=== PATIENT | female | born 1990 | race Caucasian/White ===

== ENCOUNTER 2019-02-12 12:28 | Emergency (ER) | payer SELFPAY ==
[~2019-02-12] VITALS: Ht 165.1 cm; Wt 196.9 kg
[2019-02-12] MEDS ORDERED: LISINOPRIL20 MG PO (14:59)
[2019-02-12] MEDS ORDERED: NORVASC5 MG PO (14:59)
[2019-02-12] MEDS ORDERED: MUPIROCIN22 GM TOP (16:06)
[2019-02-12] MEDS ORDERED: DOXYCYCLINE HY100 MG PO (16:06)
== END 2019-02-12 12:58 | disposition home or self-care (01) ==
LOC: ED 12:28
DX: L08.9 Local infection of the skin and subcutaneous tissue, unspecified (principal)

== ENCOUNTER 2019-02-12 13:27 | Emergency (ER) | payer OTHER ==
[~2019-02-12] VITALS: Ht 165.1 cm; Wt 197.3 kg
--- OUTSIDE RECORDS SUMMARY | 2019-02-12 13:30 | XMS ---
PreManage Notification: ANDREY MARTINEZ Security Equipment Service Technician Events No recent Security Events currently on file CRITERIA MET - [facility] - 2 Visits in 30 Days CARE PROVIDERS There are no care providers on record at this time. Luis has no Care Guidelines for this patient. Tigist VISIT COUNT (12 MO.) 2 [facility] [place] TOTAL 2 NOTE: Visits indicate total known visits. ED/C VISIT TRACKING (12 MO.) 02/12/2019 13:28 [facility] TYPE: Emergency COMPLAINT: - SKIN PROBLEM/LEGS 02/12/2019 12:28 [facility] [place] TYPE: Emergency COMPLAINT: - SKIN PROBLEM/LEGS- MSE TO CLINIC INPATIENT VISIT TRACKING (12 MO.) No inpatient visits to display in this time frame [id number]
[2019-02-12] MEDS ORDERED: NORVASC5 MG PO (14:59)
[2019-02-12] MEDS ORDERED: LISINOPRIL20 MG PO (14:59)
[2019-02-12] MEDS ORDERED: DOXYCYCLINE HY100 MG PO (16:06)
[2019-02-12] MEDS ORDERED: MUPIROCIN22 GM TOP (16:06)
== END 2019-02-12 16:18 | disposition home or self-care (01) ==
LOC: ED 13:27
DX: A49.02 Methicillin resistant Staphylococcus aureus infection, unspecified site (principal); L73.9 Follicular disorder, unspecified; E11.9 Type 2 diabetes mellitus without complications; J45.909 Unspecified asthma, uncomplicated; Z88.0 Allergy status to penicillin; Z88.8 Allergy status to other drugs, medicaments and biological substances; Z79.899 Other long term (current) drug therapy
CPT/HCPCS: 99283

== ENCOUNTER 2019-05-31 16:58 | Emergency (ER) | payer OTHER ==
[~2019-05-31] VITALS: Ht 165.1 cm; Wt 196.9 kg
[~2019-05-31 16:58] MED LIST: DOXYCYCLINE HY100 MG PO; LISINOPRIL20 MG PO; MUPIROCIN22 GM TOP; NORVASC5 MG PO
--- OUTSIDE RECORDS SUMMARY | 2019-05-31 17:02 | XMS ---
PreManage Notification: ANDREY MARTINEZ Security Electrical Sign Wirer Events No recent Security Events currently on file CRITERIA MET - Group Notification CARE PROVIDERS There are no care providers on record at this time. Luis has no Care Guidelines for this patient. Care History Medical/Surgical 02/13/2019 [facility] - NO PCP LETTER SENT TO PATIENT. EJameson VISIT COUNT (12 MO.) [address] Gaby Contreras 3 [facility] TOTAL 4 NOTE: Visits indicate total known visits. ED/C VISIT TRACKING (12 MO.) 05/31/2019 16:59 [facility] [place] [place] TYPE: Emergency COMPLAINT: - COUGH, HEADACHE 03/07/2019 19:38 [facility] Gaby BALDERAS TYPE: Emergency DIAGNOSES: - Wound - Non-prs chronic ulc unsp prt of r low leg w unsp severity - Poss MRSA;leg wound - Poss MRSA 02/12/2019 13:28 [facility] TYPE: Emergency COMPLAINT: - SKIN PROBLEM/LEGS DIAGNOSES: - Other chcf (current) drug therapy - Follicular disorder, unspecified - Allergy status to oth drug/meds/biol subst status - Allergy status to penicillin - Unspecified asthma, uncomplicated - 1 Type 2 diabetes mellitus without complications - Methicillin resis staph infection, unsp site Methicill 02/12/2019 12:28 [facility] TYPE: Emergency COMPLAINT: - SKIN PROBLEM/LEGS- MSE TO CLINIC DIAGNOSES: - Local infection of the skin and subcutaneous tissue, unsp INPATIENT VISIT TRACKING (12 MO.) No inpatient visits to display in this time frame [id number]
[2019-05-31] MEDS ORDERED: ZITHROMAX250 MG PO (18:14)
== END 2019-05-31 18:24 | disposition home or self-care (01) ==
LOC: ED 16:58
DX: H66.92 Otitis media, unspecified, left ear (principal); E11.9 Type 2 diabetes mellitus without complications; J45.909 Unspecified asthma, uncomplicated; Z87.891 Personal history of nicotine dependence; Z88.8 Allergy status to other drugs, medicaments and biological substances; Z88.0 Allergy status to penicillin; Z79.899 Other long term (current) drug therapy
CPT/HCPCS: 71046; 87502; 87880; 99283-25

== ENCOUNTER 2019-06-19 23:11 | Emergency (ER) | payer OTHER ==
[~2019-06-19] VITALS: Ht 165.1 cm; Wt 196.9 kg
[~2019-06-19 23:11] MED LIST changes: +ZITHROMAX250 MG PO
--- OUTSIDE RECORDS SUMMARY | 2019-06-19 23:14 | XMS ---
PreManage Notification: ANDREY MARTINEZ Security Machine Tool Electrician Events No recent Security Events currently on file CRITERIA MET - Group Notification - [facility] - 2 Visits in 30 Days CARE PROVIDERS DANA GONZALEZ Physician Airframe Technical Officer 06/02/2019-Current GLENN PHONE: [phone] Luis has no Care Guidelines for this patient. Care History Medical/Surgical 02/13/2019 [facility] - NO PCP LETTER SENT TO PATIENT. [place] VISIT COUNT (12 MO.) [address] Gaby Contreras 4 [facility]. TOTAL 5 NOTE: Visits indicate total known visits. ED/UCC VISIT TRACKING (12 MO.) 06/19/2019 23:12 [facility] TYPE: Emergency COMPLAINT: - RIGHT LEG PAIN/NON INJURY 05/31/2019 16:59 [facility] TYPE: Emergency COMPLAINT: - COUGH, HEADACHE DIAGNOSES: - Unspecified asthma, uncomplicated - Allergy status to penicillin - Other spring former machine (current) drug therapy - Cough - Personal history of nicotine dependence - Type 2 diabetes mellitus without complications - Otitis media, unspecified, left ear - Allergy status to other drugs, medicaments and biological sub 03/07/2019 19:38 [facility] Gaby BALDERAS TYPE: Emergency DIAGNOSES: - Wound - Non-pressure chronic ulcer of unspecified part of right lower - Poss MRSA;leg wound - Poss MRSA 02/12/2019 13:28 [facility] [place] TYPE: Emergency COMPLAINT: - SKIN PROBLEM/LEGS DIAGNOSES: - Other halfway (current) drug therapy - Follicular disorder, unspecified - Allergy status to other drugs, medicaments and biological sub - Allergy status to penicillin - Unspecified asthma, uncomplicated - Type 2 diabetes mellitus without complications - Methicillin resistant Staphylococcus aureus infection, unspec 02/12/2019 12:28 [facility] [place] TYPE: Emergency COMPLAINT: - SKIN PROBLEM/LEGS- MSE TO CLINIC DIAGNOSES: - Local infection of the skin and subcutaneous tissue, unspecif INPATIENT VISIT TRACKING (12 MO.) No inpatient visits to display in this time frame [id number]
[2019-06-19] MEDS ORDERED: CYCLOBENZAPRINE10 MG PO (23:30)
[2019-06-20] MEDS ORDERED: DICLOFENAC SODI75 MG PO (00:47)
== END 2019-06-20 01:02 | disposition home or self-care (01) ==
LOC: ED 23:11
DX: M25.551 Pain in right hip (principal); E11.9 Type 2 diabetes mellitus without complications; J45.909 Unspecified asthma, uncomplicated; Z87.891 Personal history of nicotine dependence; Z88.0 Allergy status to penicillin; Z79.899 Other long term (current) drug therapy
CPT/HCPCS: 73502; 84703; 93971; 99284-25

== ENCOUNTER 2020-03-03 19:40 | Emergency (ER) | payer OTHER ==
[~2020-03-03] VITALS: Ht 165.1 cm; Wt 196.9 kg
[~2020-03-03 19:40] MED LIST changes: +CYCLOBENZAPRINE10 MG PO; +DICLOFENAC SODI75 MG PO
[2020-03-03] MEDS ORDERED: CATAPRES0.2 MG PO (19:58)
[2020-03-03] MEDS ORDERED: MINIPRESS1 MG PO (19:58)
[2020-03-03] MEDS ORDERED: PRISTIQ ER25 MG PO (19:59)
[2020-03-03] MEDS ORDERED: METFORMIN HCL500 M1 PO (19:59)
== END 2020-03-03 20:27 | disposition home or self-care (01) ==
LOC: ED 19:40
DX: J20.9 Acute bronchitis, unspecified (principal); E11.9 Type 2 diabetes mellitus without complications; Z20.828 Contact with and (suspected) exposure to other viral communicable diseases; F17.200 Nicotine dependence, unspecified, uncomplicated; Z88.8 Allergy status to other drugs, medicaments and biological substances; Z88.0 Allergy status to penicillin; Z79.899 Other long term (current) drug therapy; Z79.84 Long term (current) use of oral hypoglycemic drugs
CPT/HCPCS: 99283; C9803; U0003

== ENCOUNTER 2020-06-28 13:25 | Emergency (ER) | payer OTHER ==
[~2020-06-28] VITALS: Ht 165.1 cm; Wt 225.8 kg
[~2020-06-28 13:25] MED LIST changes: +CATAPRES0.2 MG PO; +METFORMIN HCL500 M1 PO; +MINIPRESS1 MG PO; +PRISTIQ ER25 MG PO
[2020-06-28] MEDS ORDERED: FAMOTIDINE20 MG PO (14:03)
== END 2020-06-28 19:35 | disposition short-term general hospital (02) ==
LOC: ED 13:25
DX: N70.93 Salpingitis and oophoritis, unspecified (principal); E11.9 Type 2 diabetes mellitus without complications; J45.909 Unspecified asthma, uncomplicated; F17.200 Nicotine dependence, unspecified, uncomplicated; Z88.8 Allergy status to other drugs, medicaments and biological substances; Z88.0 Allergy status to penicillin; Z79.899 Other long term (current) drug therapy; Z79.84 Long term (current) use of oral hypoglycemic drugs
CPT/HCPCS: 74176; 76830; 80053; 81001; 83690; 84703; 85025; 87491; 87591; 99285-25; J0694; J1170; J2270; J2405; U0003

== ENCOUNTER 2020-12-18 10:32 | Emergency (ER) | payer OTHER ==
[~2020-12-18] VITALS: Ht 165.1 cm; Wt 232.7 kg
[~2020-12-18 10:32] MED LIST changes: +FAMOTIDINE20 MG PO
--- OUTSIDE RECORDS SUMMARY | 2020-12-18 10:36 | XMS ---
PreManage Notification: ANDREY MARTINEZ Security Hair Boiler Events No recent Security Events currently on file CRITERIA MET - [employer] CARE PROVIDERS DANA GONZALEZ Physician Mixer Lever Operator 06/02/2019-Current PHONE: [phone] Luis has no Care Guidelines for this patient. Care History Medical/Surgical 02/13/2019 [facility] - NO PCP LETTER SENT TO GERARDO. Tigist VISIT COUNT (12 MO.) 1 [facility] 3 [facility] TOTAL 4 NOTE: Visits indicate total known visits. ED/UCC VISIT TRACKING (12 MO.) 12/18/2020 10:34 [facility] [place] TYPE: Emergency COMPLAINT: - BACK PAIN/ INJ 06/28/2020 22:53 [facility] TYPE: Emergency DIAGNOSES: 91315. ovarian torsion vs abscess 06/28/2020 13:25 [facility] [place] TYPE: Emergency COMPLAINT: - ABDOMINAL PAIN DIAGNOSES: - Allergy status to other drugs, medicaments and biological substances - Allergy status to penicillin - Unspecified asthma, uncomplicated - CHCF (current) use of oral hypoglycemic drugs - Type 2 diabetes mellitus without complications - Unspecified abdominal pain - Other chcf (current) drug therapy - Salpingitis and oophoritis, unspecified - Nicotine dependence, unspecified, uncomplicated 03/03/2020 19:41 [facility] [place] TYPE: Emergency COMPLAINT: - SOB, COUGH, BODY ACHES DIAGNOSES: - Other buttermilk drier operator (current) drug therapy - Nicotine dependence, unspecified, uncomplicated - Type 2 diabetes mellitus without complications - terminologist (current) use of oral hypoglycemic drugs - Allergy status to penicillin - Contact with and (suspected) exposure to other viral communicable diseases - Allergy status to other drugs, medicaments and biological substances - Allergy status to other drugs, medicaments and biological substances - Acute bronchitis, unspecified - Cough INPATIENT VISIT TRACKING (12 MO.) 06/28/2020 22:53 [facility] TYPE: Gynecology DIAGNOSES: 59039. Pelvic and perineal pain . Torsion of ovary and ovarian pedicle, unspecified side . Pelvic and perineal pain . Body mass index [BMI] 70 or greater, adult . Sepsis, unspecified organism . Morbid (severe) obesity due to excess calories [id number]
[2020-12-18] MEDS ORDERED: ASPIRIN81 MG PO (10:53)
[2020-12-18] MEDS ORDERED: PHENTERMINE H37.5 M1 PO (10:53)
[2020-12-18] MEDS ORDERED: OMEPRAZOLE20 MG PO (10:53)
== END 2020-12-18 14:44 | disposition home or self-care (01) ==
LOC: ED 10:32
DX: S39.012A Strain of muscle, fascia and tendon of lower back, initial encounter (principal); S63.501A Unspecified sprain of right wrist, initial encounter; E11.9 Type 2 diabetes mellitus without complications; J45.909 Unspecified asthma, uncomplicated; E28.2 Polycystic ovarian syndrome; F17.200 Nicotine dependence, unspecified, uncomplicated; W23.1XXA Caught, crushed, jammed, or pinched between stationary objects, initial encounter; Y99.0 Civilian activity done for income or pay; Z79.82 Long term (current) use of aspirin; Z79.84 Long term (current) use of oral hypoglycemic drugs; Z79.899 Other long term (current) drug therapy; Z88.0 Allergy status to penicillin; Z88.8 Allergy status to other drugs, medicaments and biological substances
CPT/HCPCS: 72100; 73110; 99283-25

== ENCOUNTER 2021-07-01 14:06 | Emergency (ER) | payer OTHER ==
[~2021-07-01] VITALS: Ht 165.1 cm; Wt 232.7 kg
[~2021-07-01 14:06] MED LIST changes: +ASPIRIN81 MG PO; +OMEPRAZOLE20 MG PO; +PHENTERMINE H37.5 M1 PO
[2021-07-01] MEDS ORDERED: CEPHALEXIN500 MG PO (18:26)
[2021-07-01] MEDS ORDERED: HYDROCODON-ACE1 EA10 PO (18:27)
== END 2021-07-01 19:26 | disposition home or self-care (01) ==
LOC: ED 14:06
DX: N39.0 Urinary tract infection, site not specified (principal); E11.9 Type 2 diabetes mellitus without complications; J45.909 Unspecified asthma, uncomplicated; F17.200 Nicotine dependence, unspecified, uncomplicated; Z79.899 Other long term (current) drug therapy; Z88.0 Allergy status to penicillin; Z88.6 Allergy status to analgesic agent; Z88.8 Allergy status to other drugs, medicaments and biological substances; Z79.82 Long term (current) use of aspirin; Z79.84 Long term (current) use of oral hypoglycemic drugs
CPT/HCPCS: 36415; 74177; 76830; 80048; 81001; 84703; 85025; 87077; 87088; 96375; 96376; 99284-25; J0696; J1170; J2060; J2405; Q9967

== ENCOUNTER 2021-08-22 09:08 | Emergency (ER) | payer OTHER ==
[~2021-08-22] VITALS: Ht 165.1 cm; Wt 226.8 kg
[~2021-08-22 09:08] MED LIST changes: +CEPHALEXIN500 MG PO; +HYDROCODON-ACE1 EA10 PO
--- OUTSIDE RECORDS SUMMARY | 2021-08-22 09:10 | XMS ---
PreManage Notification: ANDREY MARTINEZ Security Communication Manager Events 2 event(s) in the past 18 months Most recent security events: Elopement at [facility] 08/03/2021 21:48 - Patient eloped before treatment completed. - Patient with suicidal and/or homicidal ideations eloped. - Patient eloped with IV in place. Details: PATIENT LWBS Elopement at [facility] 04/05/2021 20:17 - Other Details: PATIENT LWBS CRITERIA MET - [facility] - 2 Visits in 30 Days CARE PROVIDERS Christina Baez-C Nurse Practitioner: Family Current PHONE: [phone] Luis has no Care Guidelines for this patient. Care History Medical/Surgical 02/13/2019 [facility] - NO PCP LETTER SENT TO GERARDO. Tigist VISIT COUNT (12 MO.) 5 [facility] TOTAL 5 NOTE: Visits indicate total known visits. ED/UCC VISIT TRACKING (12 MO.) 08/22/2021 09:08 [facility] [place] TYPE: Emergency COMPLAINT: - VOMITING, FEVER, SOB 08/03/2021 21:48 [facility] [place] TYPE: Emergency COMPLAINT: - PELVIC AND ABD PAIN 07/01/2021 14:07 [facility] [place] TYPE: Emergency COMPLAINT: - ABDOMINAL PAIN DIAGNOSES: - Nicotine dependence, unspecified, uncomplicated - Allergy status to analgesic agent - Type 2 diabetes mellitus without complications - Urinary tract infection, site not specified - Unspecified asthma, uncomplicated - it security consultant (current) use of oral hypoglycemic drugs - Allergy status to penicillin - intermediate (current) use of aspirin - Right lower quadrant pain - Other home service consultant (current) drug therapy - Allergy status to other drugs, medicaments and biological substances 04/05/2021 20:17 [facility] [place] TYPE: Emergency COMPLAINT: - BACK PAIN, FLU SYMPTOMS 12/18/2020 10:34 [facility] [place] TYPE: Emergency COMPLAINT: - BACK PAIN/ INJ DIAGNOSES: - Civilian activity done for income or pay - Allergy status to penicillin - Type 2 diabetes mellitus without complications - intermediate (current) use of oral hypoglycemic drugs - Strain of muscle, fascia and tendon of lower back, initial encounter - Unspecified asthma, uncomplicated - Caught, crushed, jammed, or pinched between stationary objects, initial encounter - intermediate (current) use of aspirin - Unspecified sprain of right wrist, initial encounter - Polycystic ovarian syndrome - Low back pain - Other home service consultant (current) drug therapy - Allergy status to other drugs, medicaments and biological substances - Nicotine dependence, unspecified, uncomplicated INPATIENT VISIT TRACKING (12 MO.) No inpatient visits to display in this time frame [id number]
[2021-08-22] MEDS ORDERED: DICYCLOMINE HCL20 MG PO (11:12)
[2021-08-22] MEDS ORDERED: IMODIUM A-D2 M2 PO (11:12)
[2021-08-22] MEDS ORDERED: ONDANSETRON ODT4 MG PO (11:12)
[2021-08-22] MEDS ORDERED: PROTONIX40 MG PO (13:34)
== END 2021-08-22 13:55 | disposition home or self-care (01) ==
LOC: ED 09:08
DX: R11.2 Nausea with vomiting, unspecified (principal); R19.7 Diarrhea, unspecified; E11.9 Type 2 diabetes mellitus without complications; I10 Essential (primary) hypertension; J45.909 Unspecified asthma, uncomplicated; E66.01 Morbid (severe) obesity due to excess calories; F17.200 Nicotine dependence, unspecified, uncomplicated; Z98.84 Bariatric surgery status; Z88.8 Allergy status to other drugs, medicaments and biological substances; Z88.6 Allergy status to analgesic agent; Z68.45 Body mass index [BMI] 70 or greater, adult; Z20.822 Contact with and (suspected) exposure to COVID-19
CPT/HCPCS: 36415; 74177; 80053; 81001; 83690; 84703; 85025; 87502; A9270; C9803; J1200; J1790; J1885; J2405; J7030; U0003

== ENCOUNTER 2021-09-18 11:30 | Inpatient (IN) | payer OTHER ==
[~2021-09-18] VITALS: Ht 165.1 cm; Wt 219.0 kg
[~2021-09-18 11:30] MED LIST changes: +DICYCLOMINE HCL20 MG PO; +IMODIUM A-D2 M2 PO; +ONDANSETRON ODT4 MG PO; +PROTONIX40 MG PO
--- OUTSIDE RECORDS SUMMARY | 2021-09-18 11:32 | XMS ---
PreManage Notification: ANDREY MARTINEZ Security Commercial Airplane Pilot Events 2 event(s) in the past 18 months Most recent security events: Elopement at [facility] 08/03/2021 21:48 - Patient eloped before treatment completed. - Patient with suicidal and/or homicidal ideations eloped. - Patient eloped with IV in place. Details: PATIENT LWBS Elopement at [facility] 04/05/2021 20:17 - Other Details: PATIENT LWBS CRITERIA MET - [facility] - 2 Visits in 30 Days [facility] PROVID[facility] Christina BaezP-C Nurse Practitioner: Family Current PHONE: [phone] Luis has no Care Guidelines for this patient. Care History Medical/Surgical 02/13/2019 [facility] - NO PCP LETTER SENT TO GERARDO. Tigist VISIT COUNT (12 MO.) 6 [facility] TOTAL 6 NOTE: Visits indicate total known visits. ED/UCC VISIT TRACKING (12 MO.) 09/18/2021 11:31 [facility] [place] TYPE: Emergency COMPLAINT: - SOB / CHEST PAIN 08/22/2021 09:08 [facility] [place] TYPE: Emergency COMPLAINT: - VOMITING, FEVER, SOB DIAGNOSES: - Allergy status to other drugs, medicaments and biological substances - Diarrhea, unspecified - Nausea with vomiting, unspecified - Contact with and (suspected) exposure to COVID-19 - Body mass index [BMI] 70 or greater, adult - Type 2 diabetes mellitus without complications - Unspecified asthma, uncomplicated - Bariatric surgery status - Morbid (severe) obesity due to excess calories - Allergy status to analgesic agent - Essential (primary) hypertension - Nicotine dependence, unspecified, uncomplicated 08/03/2021 21:48 [facility] [place] TYPE: Emergency COMPLAINT: - PELVIC AND ABD PAIN 07/01/2021 14:07 [facility] [place] TYPE: Emergency COMPLAINT: - ABDOMINAL PAIN DIAGNOSES: - Nicotine dependence, unspecified, uncomplicated - Allergy status to analgesic agent - Type 2 diabetes mellitus without complications - Urinary tract infection, site not specified - Unspecified asthma, uncomplicated - long term care social worker (current) use of oral hypoglycemic drugs - Allergy status to penicillin - long term care social worker (current) use of aspirin - Right lower quadrant pain - Other rn long term care (current) drug therapy - Allergy status to other drugs, medicaments and biological substances 04/05/2021 20:17 [facility] [place] TYPE: Emergency COMPLAINT: - BACK PAIN, FLU SYMPTOMS 12/18/2020 10:[address] [facility] [place] TYPE: Emergency COMPLAINT: - BACK PAIN/ INJ DIAGNOSES: - Civilian activity done for income or pay - Allergy status to penicillin - Type 2 diabetes mellitus without complications - custodial (current) use of oral hypoglycemic drugs - Strain of muscle, fascia and tendon of lower back, initial encounter - Unspecified asthma, uncomplicated - Caught, crushed, jammed, or pinched between stationary objects, initial encounter - custodial (current) use of aspirin - Unspecified sprain of right wrist, initial encounter - Polycystic ovarian syndrome - Low back pain - Other rn long term care (current) drug therapy - Allergy status to other drugs, medicaments and biological substances - Nicotine dependence, unspecified, uncomplicated INPATIENT VISIT TRACKING (12 MO.) No inpatient visits to display in this time frame [email or web address]
[2021-09-18] MEDS ORDERED: CYCLOBENZAPRINE5 MG PO (11:50)
--- NOTE | 2021-09-18 17:30 | NUR ---
PT UP IN FOR MEAL - COMFORTABLE, DECLINES COUGH MEDS. INSTRUCTED ON NEED FOR SPUTUM - CUP LABELED AND PROVIDED TO BEDSIDE.
--- NOTE | 2021-09-18 17:42 | NUR ---
In room for lab draw, dinner tray cleared, pt ate approx 15%. Pt states no needs at this time.
--- NOTE | 2021-09-18 19:30 | NUR ---
REPORT RECEIVED FROM KAREN BURKS. pt RESTING IN BED WITH HOB ELEVATED. NO REQUESTS AT THIS TIME.
--- NOTE | 2021-09-18 20:29 | NUR ---
ANSWERED CALL LIGHT. PT IV R WRIST REINFORCED. UP IN CHAIR. RT AWARE TO CHECK THE CPAP OF PT'S.
--- NOTE | 2021-09-18 21:00 | NUR ---
PHONE CALL TO [facility] [phone] FOR A BARIATIC BED. STATED THAT WITHIN 24 HOURS BED WILL BE HERE. PT AWARE OF BED STATUS. LIBRARY MANAGER AWARE.
--- NOTE | 2021-09-18 22:03 | NUR ---
pt RESTING IN BED AWAKE. 3L OXYGEN BY NC IN PLACE. SPO2 WNL. SPORADIC WHEEZES AUSCULTATED. PRN COUGH MEDICATION ADMINISTERED. ASSESSMENT COMPLETE. pt DENIES PAIN. REQUESTING PRN SLEEP MEDICATION. PHONE CALL TO MD. ORDERS RECEIVED AND REPEATED BACK TO VERIFY. EMAR UPDATED.
--- NOTE | 2021-09-18 22:39 | NUR ---
pt RESTING IN BED ON SIDE, 3L OXYGEN BY NC IN PLACE. PRN SLEEP MEDICATION ADMINISTERED. ICE WATER REFILLED. CALL LIGHT IN REACH.
--- NOTE | 2021-09-19 00:19 | NUR ---
pt RESTING IN BED ON LEFT SIDE, BREATHING UNLABORED. NO DISTRESS NOTED.
--- NOTE | 2021-09-19 02:36 | NUR ---
IN ROOM FOR VS. pt SLEEPING WITH HOME CPAP. AWAKENS TO VOICE. SPO2 91-92% WITH CPAP RA. pt DENIES SOB AT REST. SBA TO RESTROOM FOR VOID AND BACK TO BED ON RA. BREATHING LABORED, SPO2 89-90%. 2L OXYGEN BY NC APPLIED FOR pt TO RECOVER, SPO2 QUICKLY INCREASES TO >92%. ASSESSMENT COMPLETE. SPORADIC EXPIRATORY WHEEZES AUSCULTATED THROUGHOUT LUNG LOBES, COARSE BILATERALLY IN BASES POSTERIORLY. pt HAS CALL LIGHT IN REACH. NO ADDITIONAL REQUESTS.
--- NOTE | 2021-09-19 03:26 | NUR ---
PT COMPLAINING OF HEADACHE AND COUGH. PRN TYLENOL GIVEN AND COUGH SUPPRESANT. PT DENIES ANY OTHER CONCERN AT THIS TIME. CALL LIGHT WITHIN REACH WILL CONTINUE TO MONITOR.
--- NOTE | 2021-09-19 06:03 | NUR ---
pt SLEEPING WITH 2L OXYGEN BY NC IN PLACE. TITRATED TO 1L OXYGEN BY NC. DENIES SOB. IV MEDICATION ADMINISTERED WNL, SL. VSS. pt DENIES TOILETING OR ADDITIONAL NEEDS. CALL LIGHT IN REACH.
--- NOTE | 2021-09-19 07:15 | NUR ---
Report received from Idalmis JONES. Pt resting in bed, awakens to RN entry. Pt states having headache, Idalmis JONES medicates with PRN tylenol, pt requests RT for neb tx, notified. Pt on 1L NC O2 at this time and tolerating well. No further needs, call light in reach.
--- NOTE | 2021-09-19 08:14 | NUR ---
Scheduled medications administered and assessment complete, pt sitting up to chair, currently on 1L NC O2 and spo2 94%, lungs clear at this time, no cough noted. Pt reports generalized anxiety/feeling "shaky", administered PRN flexeril, pt states takes at home. Discussed side effects of medications such as solumedrol and neb tx. Pt SL, A+O, VSS. Afebrile. Breakfast delivered to pt and ordered for pt S.O. Ana. No further needs at this time.
--- NOTE | 2021-09-19 11:03 | NUR ---
Pt medicated with PRN cough medications, no further needs at this time.
--- NOTE | 2021-09-19 12:06 | NUR ---
MIKE SPOKE WITH PATIENT AND SHE LIVES IN A ONE STORY HOUSE WITH ALEXISSHANNAN AND OTHER FAMILY MEMBERS. PATIENT WOULD LIKE TO GET HER ONCOLOGY SERVICES HERE AT [facility] INSTEAD OF GOING TO [place], [place] WHICH IS WHERE SHE IS CURRENTLY SCHEDULED TO START HER ONCOLOGY CARE. PATIENT HAS HER CPAP MACHINE AND NEBULIZER THROUGH [facility] IN [place] AND WOULD LIKE TO GET HOME O2 THROUGH THEM IF SHE NEEDS IT ON DISCHARGE. PATIENT ALSO WILL SOON BE OUT OF NEB SOLUTION AND IS LOOKING TO GET ANOTHER RX FOR IT. PATIENT PLANS TO DC TO HOME WITH ASSISTANCE FROM GUERAJs AND OTHER FAMILY MEMBERS.
--- NOTE | 2021-09-19 12:22 | NUR ---
SS insulin administered, 3 units, pt compliant with medications. Pharmacy in room to perform med rec.
[2021-09-19] MEDS ORDERED: BARIATRIC MV-I1 EACH PO (12:30)
[2021-09-19] MEDS ORDERED: CITRACAL + D E1 EACH PO (12:30)
--- NOTE | 2021-09-19 13:53 | NUR ---
KAREN LEONG INFORMED PT IS IN TAKING A SHOWER. WILL CHECK BACK LATER.
--- NOTE | 2021-09-19 15:23 | NUR ---
Scheduled ABX and pepcid administered, PRN robitussin given per pt request, pt remains on 1L and SPO2 97%, pt expresses hesitancy re: titrating to RA. Pt c/o anxiety to be off O2 at this time. Reviewed POC and pt condition, she is agreeable at this time. Call light in reach, visitor at bedside
--- NOTE | 2021-09-19 17:58 | NUR ---
Rounded on patient who is resting in bed, Remains on RA at this time, O2 NC in reach with 1L, pt educated regarding if feeling SOB to notify RN. She verbalizes understanding, states has no needs at this time.
--- NOTE | 2021-09-19 18:05 | NUR ---
PATIENT CALLED HAVING A COUGHING FIT AND ASKING FOR COUGH MEDICATION. TOO EARLY FOR TESSALON PEARLS SO COUGH SYRUP 10MLS GIVEN. CALL LIGHT IN REACH AND PATIENT HAS NOOTHER CARE NEEDS AT THIS TIME.
--- NOTE | 2021-09-19 19:31 | NUR ---
REPORT RECEIVED FROM KAREN LEONG. pt UP IN CHAIR ON RA. REQUESTING TO AMBULATE. PORTABLE SPO2 MONITOR PROVIDED. EDUCATION PROVIDED. SIGNIFICANT OTHER IN ROOM.
--- NOTE | 2021-09-19 20:45 | NUR ---
PT. CALLED [facility] REQUESTING ASSISTANCE WITH VISITOR BED. ASSISTANCE PROVIDED. CALL LIGHT LEFT WITHIN REACH. NO OTHER IMMEDIATE NEEDS AT THIS TIME.
--- NOTE | 2021-09-19 21:18 | NUR ---
pt AWAKE RESTING IN BED. CBG 153. SS INSULIN ADMINISTERED. pt ON RA, SPO2 94-95%. DENIES SOB. AMBULATED IN HALLWAY WITH SIGNIFICANT OTHER, SPO2 90-91% WITH AMBULATION. LUNG SOUNDS CLEAR AT THIS TIME THROUGHOUT ALL LOBES. CALL LIGHT IN REACH. NO ADDITIONAL REQUESTS.
--- NOTE | 2021-09-19 23:25 | NUR ---
CALL LIGHT ANSWERED. PRN FLEXERIL AND COUGH MEDICATION ADMINISTERED. pt UP IN CHAIR. REQUESTING MIDNIGHT BREATHING TREATMENT TONIGHT. RT ALTHEA NOTIFIED. URINE EMPTIED FROM TOILET. NO ADDITIONAL REQUESTS.
--- NOTE | 2021-09-19 23:30 | NUR ---
PT. CALLED REQUESTING PRN MEDS. PT. NURSE NOTIFIED PROMPTLY. CALL LIGHT LEFT WITHIN REACH. NO OTHER IMMEDIATE NEEDS AT THIS TIME.
--- NOTE | 2021-09-20 02:45 | NUR ---
CHECKED ON pt. RESTING IN BED ON RIGHT SIDE. BREATHING EQUAL AND UNLABORED. NO DISTRESS NOTED.
--- NOTE | 2021-09-20 06:38 | NUR ---
pt SLEEPING, AWAKENS TO VOICE. ASSESSMENT COMPLETE. NO ADVENTITIOUS LUNG SOUNDS AUSCULTATED. SPO2 94% ON RA. pt DENIES NEEDS. ICE WATER REFILLED. URINE HAT EMPTIED. CALL LIGHT IN REACH.
--- NOTE | 2021-09-20 07:15 | NUR ---
Report received from Idalmis JONES. Pt resting in bed, per NOC shift using RA or CPAP throughout night, no needs at this time. Will continue plan of care.
--- NOTE | 2021-09-20 08:50 | NUR ---
Scheduled medications administered and PRN robitussin. Assessment complete. Pt currently 90-93% on RA, states SOB with exertion. Using cornet device. IV flushes well. Pt states no needs at this time. Scant amount blood noted in urine, pt states has noted for several days. Call light in reach.
--- NOTE | 2021-09-20 09:02 | NUR ---
PATIENT UP IN ROOM. VITALS AND I&OS CHARTED. ROOM TIDIED AND LINEN CHANGED. WASHCLOTHS/TOWELS PROVIDED FOR PATIENT CARE
--- NOTE | 2021-09-20 11:04 | NUR ---
Pt medicated with scheduled mucinex. On phone at this time, states no needs. On RA. Ambulating around room independently.
--- NOTE | 2021-09-20 11:14 | NUR ---
PT SET UP FOR SHOWER. PT WAS INDEPENDENT IN THE ROOM/SHOWER. USED CALL LIGHT APPROPRIATLY AFTER FOR ASSISTANCE TO CLEAN UP SHOWER ROOM. PT SAT IN CHAIR AND BRUSHED HER HAIR. NO SIGNS OF DISTRESS OR PAIN NOTED. CALL LIGHT W/IN REACH. NO FURTHER REQUESTS.
--- NOTE | 2021-09-20 13:25 | NUR ---
Tracy JONES in room to medicate pt with PRN tylenol. No further needs
--- NOTE | 2021-09-20 14:09 | NUR ---
PATIENT HAD BARIATRIC SURGERY IN 2017. SHE MET WITH ME AN OUTPATIENT ABOUT 3 YEARS AGO. SHE SAID SHE WILL LIKELY HAVE ANOTHER BARITRIC SURGERY. 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 SHE IS ON A 75 GM CONSISTENT CARB DIET AT THIS TIME. SHE NEEDED A NEW MENU AND HAS BEEN CALLING THE KITCHEN TO REQUEST CHANGES TO HER MEALS DESIRED. NEW MENU BROUGHT UP. SHE STATES HE IS LOSING WEIGHT. SHE WAS 529 LBS AND TODAY SHE IS 482 LBS. SHE HAS NO OTHER QUESTIONS OR CONCERNS AT THIS TIME. WILL BE AVAILABLE IF NEEDED.
--- NOTE | 2021-09-20 14:13 | NUR ---
ENTERED PT'S RM-DARKENED AND FAN ON. PT ALERT, ORIENTED AND FRIENDLY. PT HAS HEADACHE, MENTIONED KAREN LEONG HAD JUST GIVEN TYLENOL. PT SHARED THAT SHE HAS SOME QUESTIONS REGARDING CHF,BLOOD CLOTS AND PNEUMONIA THAT SHE IS UNDER THE IMPRESSION THAT SHE IS BEING TREATED FOR, BUT NOT SURE WHY. SHARED THIS WITH KAREN LEONG-SHE WILL ADDRESS WITH PT. PT REQUESTED PRAYER,GAVE G.POST AND WILL FOLLOW
--- NOTE | 2021-09-20 14:51 | NUR ---
CM IN TO TALK WITH PATIENT. INFORMED pT THAT VITALIY THE MED/SURG CHARGE NURSE WAS WORKING ON GETTING A REFERRAL FROM PATIENT'S PCP GUERDA CAGLE TO [facility], SO PATIENT DOESN'T HAVE TO DRIVE TO [place] FOR APPOINTMENTS FOR ONCOLOGY. ALSO INFORMED PATIENT VITALIY WAS WORKING ON GETTING A REFILL ON pT'S NEB MEDICATION WELL. PATIENT VERBALIZED UNDERSTANDING. PATIENT CONCERNED ABOUT WHEN SHE WILL BE DC'D. PATIENT HAS AN OPEN MRI APPOINTMENT IN [place] 8AM 09/22/21. PATIENT JUST WANTING TO CLARIFY THAT SHE WILL BE DISCHARGED IN TIME TO GET TO THE MRI APPOINTMENT. SHE IS HOPING TO SPEND THE NIGHT IN [place] TOMORROW TO BE THERE FOR THE AM APPOINTMENT THE NEXT DAY. CM DISCUSSED THIS WITH VITALIY THE CHARGE NURSE AND SHE WILL ADDRESS THESE CONCERNS WITH AND THE PATIENT. EDITH INFORMED THE MD DOES NEED TO MAKE SURE SHE IS MEDICALLY STABLE AND SAFE FOR DC AND THIS WOULD BE ADDRESSED IN THE MORNING. PATIENT VERBALIZED UNDERSTANDING.
--- NOTE | 2021-09-20 16:45 | NUR ---
pt amb to bathroom room air - up in . prn cough syrup given.
--- NOTE | 2021-09-20 19:29 | NUR ---
REPORT RECEIVED FROM KAREN BURKS. pt UP IN CHAIR. COMPLAINS OF HEADACHE, PAIN AT IV SITE. COBAN REMOVED FROM RIGHT WRIST, pt STATES RELIEF. IV FLUSHED WNL, SL. PHONE CALL TO , ORDER RECEIVED TO INCREASE DOSE OF PRN TYLENOL, REPEATED BACK TO VERIFY. ORDER UPDATED.
--- NOTE | 2021-09-20 20:19 | NUR ---
pt AWAKE RESTING IN CHAIR. RATES PAIN 6/10 HEADACHE. PRN PAIN MEDICATION ADMINISTERED. IV SITE IN RIGHT WRIST PULLED OUT BY pt ACCIDENTALLY TAPE LOOSENED. NEW IV STARTED LEFT HAND WNL, BRISK BLOOD RETURN. SCHEDULED MEDICATIONS ADMINISTERED. ASSESSMENT COMPLETE. COARSENESS AUSCULTATED IN LOWER LUNG LOBES BILATERALLY. RUB LUQ. pt DENIES SOB. VSS. SPO2 94% ON RA. ICE WATER REFILLED. URINE HAT EMPTIED. NO ADDITIONAL REQUESTS.
--- NOTE | 2021-09-20 21:19 | NUR ---
pt'S SIGNIFICANT OTHER TO NURSES STATION. STATES AFTER AMBULATION pt'S SPO2 88%. IN pt ROOM. pt STANDING IN ROOM TALKING ON PHONE, SPO2 SPOT CHECKED, 90% ON RA. pt SITS, SPO2 INCREASES TO 94%. NO RESPIRATORY DISTRESS NOTED. PRN COUGH AND SLEEP MEDICATION ADMINISTERED REQUESTED. CALL LIGHT IN REACH.
--- NOTE | 2021-09-20 23:50 | NUR ---
pt RESTING IN BED ON RIGHT SIDE. BREATHING EQUAL AND UNLABORED. NO DISTRESS NOTED.
--- NOTE | 2021-09-21 02:41 | NUR ---
CHECKED ON pt. pt LYING IN BED ON RIGHT SIDE. BREATHING UNLABORED. NO DISTRESS NOTED. ON RA.
--- NOTE | 2021-09-21 04:37 | NUR ---
CALL LIGHT ANSWERED. PRN COUGH MEDICATION ADMINISTERED REQUESTED. pt WITH DRY COUGH. UP TO RESTROOM INDEPENDENTLY FOR VOID AND BACK TO BED. ASSESSMENT COMPLETE. VSS. LUNG SOUNDS CLEAR THROUGHOUT, DIMINISHED IN BASES, NO ADVENTITIOUS SOUNDS AUSCULTATED. HOME CPAP APPLIED. WATER IN REACH. CALL LIGHT AND PERSONAL SUPPLIES IN REACH.
--- NOTE | 2021-09-21 06:54 | NUR ---
pt SLEEPING, REMOVED HOME CPAP. "MY FACE ALWAYS GETS HOT". SCHEDULED MEDICATIONS ADMINISTERED. ICE WATER REFILLED. NO ADDITIONAL REQUESTS. CALL LIGHT IN REACH.
--- NOTE | 2021-09-21 07:10 | NUR ---
report from Idalmis JONES - pt resting, call light in reach.
--- NOTE | 2021-09-21 09:23 | NUR ---
VITALS AND I&OS CHARTED. PATIENT UP IN ROOM. CALL LIGHT IN EASY REACH
--- NOTE | 2021-09-21 09:30 | NUR ---
Discussed in [address] Garica. She will dc pt as soon as possible as she plans on driving to [place] today for an open MRI which will accomondate her weight. Charge and RN are working on a referral to oncology clinic at [facility] so pt doesn't have to drive >200 miles for oncology visits.
--- NOTE | 2021-09-21 10:37 | NUR ---
PT ALERT, ORIENTED AND LEANING ON BED. PT HOPES TO DC TODAY, GAVE ENCOURAGEMENT ANF BLESSING
[2021-09-21] MEDS ORDERED: AVIDOXY100 MG PO (10:57)
== END 2021-09-21 11:38 | disposition home or self-care (01) | DRG 193 ==
LOC: ED 11:30 → MS 15:52
PROVIDERS: ADMIT Internal Medicine; ATTEND Internal Medicine
DX: J18.9 Pneumonia, unspecified organism (principal); J96.01 Acute respiratory failure with hypoxia; J45.41 Moderate persistent asthma with (acute) exacerbation; Z68.45 Body mass index [BMI] 70 or greater, adult; Z20.822 Contact with and (suspected) exposure to COVID-19; I10 Essential (primary) hypertension; F12.90 Cannabis use, unspecified, uncomplicated; E66.01 Morbid (severe) obesity due to excess calories; M54.50 Low back pain, unspecified; G47.33 Obstructive sleep apnea (adult) (pediatric); D49.59 Neoplasm of unspecified behavior of other genitourinary organ; G89.29 Other chronic pain; K21.9 Gastro-esophageal reflux disease without esophagitis; E11.9 Type 2 diabetes mellitus without complications; Z88.6 Allergy status to analgesic agent; Z88.8 Allergy status to other drugs, medicaments and biological substances; Z79.899 Other long term (current) drug therapy; Z79.82 Long term (current) use of aspirin; Z79.84 Long term (current) use of oral hypoglycemic drugs
CPT/HCPCS: 36415; 71045; 71260; 80053; 82803; 83036; 85025; 85379; 87502; 94640; 94667; 94668; 94760; A9270; C9803; J0456; J0696; J1650; J1815; J2920; J2930; J7040; J7060; Q9967; U0003

== ENCOUNTER 2021-11-06 09:04 | Emergency (ER) | payer OTHER ==
[~2021-11-06] VITALS: Ht 165.1 cm; Wt 218.6 kg
[~2021-11-06 09:04] MED LIST changes: +AVIDOXY100 MG PO; +BARIATRIC MV-I1 EACH PO; +CITRACAL + D E1 EACH PO; +CYCLOBENZAPRINE5 MG PO
--- OUTSIDE RECORDS SUMMARY | 2021-11-06 09:06 | XMS ---
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 - Patient with suicidal and/or homicidal ideations eloped. - Patient eloped with IV in place. Details: PATIENT LWBS Elopement at [facility] 04/05/2021 20:17 - Other Details: PATIENT LWBS CRITERIA MET - [facility] CARE PROVIDERS Christina Baez Nurse Practitioner: Family Current PHONE: [phone] Luis has no Care Guidelines for this patient. Care History Medical/Surgical 02/13/2019 [facility] - NO PCP LETTER SENT TO PATIENT. [place] VISIT COUNT (12 MO.) 7 [facility] TOTAL 7 NOTE: Visits indicate total known visits. ED/UCC VISIT TRACKING (12 MO.) 11/06/2021 09:04 [facility] TYPE: Emergency COMPLAINT: - UTI SYMPTOMS 09/18/2021 11:31 [facility] TYPE: Emergency [...] not specified - Unspecified asthma, uncomplicated - measurement department chief clerk (current) use of oral hypoglycemic drugs - Allergy status to penicillin - measurement department chief clerk (current) use of aspirin - Right lower quadrant pain - Other welder gas tungsten arc (current) drug therapy - Allergy status to other drugs, medicaments and biological substances 04/05/2021 20:17 [facility] TYPE: Emergency COMPLAINT: - BACK PAIN, FLU SYMPTOMS 12/18/2020 10:34 [facility] TYPE: Emergency COMPLAINT: - BACK PAIN/ INJ DIAGNOSES: - Civilian activity done for income or pay - Allergy status to penicillin - Type 2 diabetes mellitus without complications - senior living (current) use of oral hypoglycemic drugs - Strain of muscle, fascia and tendon of lower back, initial encounter - Unspecified asthma, uncomplicated - Caught, crushed, jammed, or pinched between stationary objects, initial encounter - measurement department chief clerk (current) use of aspirin - Unspecified sprain of right wrist, initial encounter - Polycystic ovarian syndrome - Low back pain - Other correction (current) drug therapy - Allergy status to other drugs, medicaments and biological substances - Nicotine dependence, unspecified, uncomplicated INPATIENT VISIT TRACKING (12 MO.) 09/18/2021 15:52 [facility] TYPE: Medical Surgical COMPLAINT: - ACUTE RESPIRATORY FAILURE WITH HYPOXIA DIAGNOSES: - Obstructive sleep apnea (adult) (pediatric) - Other chronic pain - measurement department chief clerk (current) use of aspirin - Obstructive sleep apnea (adult) (pediatric) - Low back pain, unspecified - measurement department chief clerk (current) use of oral hypoglycemic drugs - Cannabis use, unspecified, uncomplicated - Cannabis use, unspecified, uncomplicated - Acute respiratory failure with hypoxia - Other chronic pain - Type 2 diabetes mellitus without complications - Moderate persistent asthma with (acute) exacerbation - Allergy status to other drugs, medicaments and biological substances - Allergy status to other drugs, medicaments and biological substances - Type 2 diabetes mellitus without complications - Other correction (current) drug therapy - Body mass index [BMI] 70 or greater, adult - Body mass index [BMI] 70 or greater, adult - Contact with and (suspected) exposure to COVID-19 - Neoplasm of unspecified behavior of other genitourinary organ - senior living (current) use of aspirin - Morbid (severe) obesity due to excess calories - Pneumonia, unspecified organism - Allergy status to analgesic agent - senior living (current) use of oral hypoglycemic drugs - Acute respiratory failure with hypoxia - Gastro-esophageal reflux disease without esophagitis - Essential (primary) hypertension - Low back pain, unspecified - Contact with and (suspected) exposure to COVID-19 - Allergy status to analgesic agent - Other correction (current) drug therapy - Moderate persistent asthma with (acute) exacerbation - Gastro-esophageal reflux disease without esophagitis - Essential (primary) hypertension - Morbid (severe) obesity due to excess calories - Neoplasm of unspecified behavior of other genitourinary organ [email or web address]
[2021-11-06] MEDS ORDERED: ALBUTEROL2.5 MG/3 M INH (09:38)
[2021-11-06] MEDS ORDERED: OXYCODONE HCL5 MG PO (09:38)
[2021-11-06] MEDS ORDERED: GABAPENTIN300 MG PO (09:38)
[2021-11-06] MEDS ORDERED: TRULICITY0.75 MG/0. SQ (09:38)
[2021-11-06] MEDS ORDERED: CEPHALEXIN500 M1 PO (10:14)
== END 2021-11-06 10:24 | disposition home or self-care (01) ==
LOC: ED 09:04
DX: N39.0 Urinary tract infection, site not specified (principal); E11.9 Type 2 diabetes mellitus without complications; I10 Essential (primary) hypertension; J45.909 Unspecified asthma, uncomplicated; F17.200 Nicotine dependence, unspecified, uncomplicated; Z88.6 Allergy status to analgesic agent; Z88.8 Allergy status to other drugs, medicaments and biological substances; Z79.899 Other long term (current) drug therapy; Z79.82 Long term (current) use of aspirin; Z79.84 Long term (current) use of oral hypoglycemic drugs
CPT/HCPCS: 81001; 87088; 99283

== ENCOUNTER 2022-02-13 10:37 | Emergency (ER) | payer OTHER ==
[~2022-02-13] VITALS: Ht 165.1 cm; Wt 212.0 kg
[~2022-02-13 10:37] MED LIST changes: +ALBUTEROL2.5 MG/3 M INH; +CEPHALEXIN500 M1 PO; +GABAPENTIN300 MG PO; +OXYCODONE HCL5 MG PO; +TRULICITY0.75 MG/0. SQ
--- OUTSIDE RECORDS SUMMARY | 2022-02-13 10:40 | XMS ---
PreManage Notification: ANDREY MARTINEZ Security General Internal Medicine Physician Events 2 event(s) in the past 18 months Most recent security events: Elopement at [facility] 08/03/2021 21:48 - Patient eloped before treatment completed. - Patient with suicidal and/or homicidal ideations eloped. - Patient eloped with IV in place. Details: PATIENT LWBS Elopement at [facility] 04/05/2021 20:17 - Other Details: PATIENT LWBS CRITERIA MET - [facility] CARE PROVIDERS Christina Baez Nurse Practitioner: Family Current PHONE: [phone] Luis has no Care Guidelines for this patient. Care History Medical/Surgical 02/13/2019 [facility] - NO PCP LETTER SENT TO PATIENT. [place] VISIT COUNT (12 MO.) 7 [facility] TOTAL 7 NOTE: Visits indicate total known visits. ED/UCC VISIT TRACKING (12 MO.) 02/13/2022 10:38 [facility] TYPE: Emergency COMPLAINT: - LOWER ABD PAIN, VAGINAL BLEEDING 11/06/2021 09:04 [facility] TYPE: Emergency COMPLAINT: - UTI SYMPTOMS DIAGNOSES: - terminal operator (current) use of oral hypoglycemic drugs - Unspecified asthma, uncomplicated - Essential (primary) hypertension - Allergy status to analgesic agent - Type 2 diabetes mellitus without complications - correction (current) use of aspirin - Nicotine dependence, unspecified, uncomplicated - Allergy status to other drugs, medicaments and biological substances - Dysuria - Urinary tract infection, site not specified - Other adjunct faculty for medical terminology (current) drug therapy 09/18/2021 11:31 [facility] TYPE: Emergency COMPLAINT: - SOB / CHEST PAIN 08/22/2021 09:08 [facility] TYPE: Emergency COMPLAINT: - VOMITING, FEVER, SOB DIAGNOSES: - Morbid (severe) obesity due to excess calories - Unspecified asthma, uncomplicated - Body mass index [BMI] 70 or greater, adult - Nicotine dependence, unspecified, uncomplicated - Nausea with vomiting, unspecified - Allergy status to analgesic agent - Allergy status to other drugs, medicaments and biological substances - Bariatric surgery status - Type 2 diabetes mellitus without complications - Contact with and (suspected) exposure to COVID-19 - Essential (primary) hypertension - Diarrhea, unspecified 08/03/2021 21:48 [facility] TYPE: Emergency COMPLAINT: - PELVIC AND ABD PAIN 07/01/2021 14:07 [facility] TYPE: Emergency COMPLAINT: - ABDOMINAL PAIN DIAGNOSES: - Right lower quadrant pain - Allergy status to penicillin - Unspecified asthma, uncomplicated - Type 2 diabetes mellitus without complications - Other adjunct faculty for medical terminology (current) drug therapy - Nicotine dependence, unspecified, uncomplicated - correction (current) use of aspirin - correction (current) use of oral hypoglycemic drugs - Urinary tract infection, site not specified - Allergy status to other drugs, medicaments and biological substances - Allergy status to analgesic agent 04/05/2021 20:17 [facility] TYPE: Emergency COMPLAINT: - BACK PAIN, FLU SYMPTOMS INPATIENT VISIT TRACKING (12 MO.) 02/08/2022 08:02 [facility] TYPE: Weight Management DIAGNOSES: 04075. Type 2 diabetes mellitus without complications . Malignant neoplasm of endometrium . Morbid (severe) obesity due to excess calories . Type 2 diabetes mellitus without complications . Body mass index [BMI] 70 or greater, adult 09/18/2021 15:[address] [facility] [place] TYPE: Medical Surgical COMPLAINT: - ACUTE RESPIRATORY FAILURE WITH HYPOXIA DIAGNOSES: - Essential (primary) hypertension - Cannabis use, unspecified, uncomplicated - Essential (primary) hypertension - Allergy status to other drugs, medicaments and biological substances - Acute respiratory failure with hypoxia - Low back pain, unspecified - Moderate persistent asthma with (acute) exacerbation - Moderate persistent asthma with (acute) exacerbation - Allergy status to analgesic agent - terminal operator (current) use of aspirin - Contact with and (suspected) exposure to COVID-19 - Allergy status to analgesic agent - Other chronic pain - Morbid (severe) obesity due to excess calories - Type 2 diabetes mellitus without complications - Body mass index [BMI] 70 or greater, adult - Neoplasm of unspecified behavior of other genitourinary organ - Cannabis use, unspecified, uncomplicated - Low back pain, unspecified - Morbid (severe) obesity due to excess calories - Type 2 diabetes mellitus without complications - Gastro-esophageal reflux disease without esophagitis - terminal operator (current) use of oral hypoglycemic drugs - Gastro-esophageal reflux disease without esophagitis - Allergy status to other drugs, medicaments and biological substances - correction (current) use of oral hypoglycemic drugs - Obstructive sleep apnea (adult) (pediatric) - Other adjunct faculty for medical terminology (current) drug therapy - Obstructive sleep apnea (adult) (pediatric) - Pneumonia, unspecified organism - Other chronic pain - Body mass index [BMI] 70 or greater, adult - Contact with and (suspected) exposure to COVID-19 - Acute respiratory failure with hypoxia - terminal operator (current) use of aspirin - Neoplasm of unspecified behavior of other genitourinary organ - Other longterm (current) drug therapy [email or web address]
[2022-02-13] MEDS ORDERED: OXYCODONE HCL5 MG PO (16:55)
== END 2022-02-13 17:20 | disposition home or self-care (01) ==
LOC: ED 10:37
DX: R10.2 Pelvic and perineal pain (principal); E11.9 Type 2 diabetes mellitus without complications; I10 Essential (primary) hypertension; J45.909 Unspecified asthma, uncomplicated; F17.200 Nicotine dependence, unspecified, uncomplicated; Z88.6 Allergy status to analgesic agent; Z88.8 Allergy status to other drugs, medicaments and biological substances; Z79.899 Other long term (current) drug therapy
CPT/HCPCS: 36415; 74177; 80053; 81001; 81003; 84703; 85025; 96374; 99284-25; J1885; Q9967

== ENCOUNTER 2022-04-17 04:14 | Emergency (ER) | payer OTHER ==
[~2022-04-17] VITALS: Ht 165.1 cm; Wt 202.8 kg
--- OUTSIDE RECORDS SUMMARY | 2022-04-17 04:18 | XMS ---
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 - Patient with suicidal and/or homicidal ideations eloped. - Patient eloped with IV in place. Details: PATIENT LWBS Elopement at [facility] 04/05/2021 20:17 - Other Details: PATIENT LWBS CRITERIA MET - [facility] CARE PROVIDERS Christina Baez Nurse Practitioner: Family Current PHONE: [phone] Luis has no Care Guidelines for this patient. Care History Medical/Surgical 02/13/2019 [facility] - NO PCP LETTER SENT TO PATIENT. [place] VISIT COUNT (12 MO.) 7 [facility] TOTAL 7 NOTE: Visits indicate total known visits. ED/UCC VISIT TRACKING (12 MO.) 04/17/2022 04:15 [facility] TYPE: Emergency COMPLAINT: - ABD PAIN 02/13/2022 10:38 [facility] TYPE: Emergency COMPLAINT: - LOWER ABD PAIN, VAGINAL BLEEDING DIAGNOSES: - Pelvic and perineal pain - Nicotine dependence, unspecified, uncomplicated - Other snf (current) drug therapy - Unspecified asthma, uncomplicated - Allergy status to analgesic agent - Type 2 diabetes mellitus without complications - Right lower quadrant pain - Essential (primary) hypertension - Allergy status to other drugs, medicaments and biological substances 11/06/2021 09:04 [facility] TYPE: Emergency COMPLAINT: - UTI SYMPTOMS DIAGNOSES: - Type 2 diabetes mellitus without complications - fur blower (current) use of aspirin - Nicotine dependence, unspecified, uncomplicated - Allergy status to other drugs, medicaments and biological substances - Dysuria - Urinary tract infection, site not specified - Other account manager relief (current) drug therapy - FDC (current) use of oral hypoglycemic drugs - Unspecified asthma, uncomplicated - Essential (primary) hypertension - Allergy status to analgesic agent 09/18/2021 11:31 [facility] TYPE: Emergency COMPLAINT: - SOB / CHEST PAIN 08/22/2021 09:08 [facility] TYPE: Emergency COMPLAINT: - VOMITING, FEVER, SOB DIAGNOSES: - Allergy status to analgesic agent - Allergy status to other drugs, medicaments and biological substances - Bariatric surgery status - Type 2 diabetes mellitus without complications - Contact with and (suspected) exposure to COVID-19 - Essential (primary) hypertension - Diarrhea, unspecified - Morbid (severe) obesity due to excess calories - Unspecified asthma, uncomplicated - Body mass index [BMI] 70 or greater, adult - Nicotine dependence, unspecified, uncomplicated - Nausea with vomiting, unspecified 08/03/2021 21:48 [facility] TYPE: Emergency COMPLAINT: - PELVIC AND ABD PAIN 07/01/2021 14:07 [facility] TYPE: Emergency COMPLAINT: - ABDOMINAL PAIN DIAGNOSES: - Other account manager relief (current) drug therapy - Nicotine dependence, unspecified, uncomplicated - FDC (current) use of aspirin - fur blower (current) use of oral hypoglycemic drugs - Urinary tract infection, site not specified - Allergy status to other drugs, medicaments and biological substances - Allergy status to analgesic agent - Right lower quadrant pain - Allergy status to penicillin - Unspecified asthma, uncomplicated - Type 2 diabetes mellitus without complications INPATIENT VISIT TRACKING (12 MO.) 03/15/2022 05:29 [facility] TYPE: Weight Management DIAGNOSES: 46066. Morbid (severe) obesity due to excess calories 29186. Dysphagia, unspecified 00617. Malignant neoplasm of endometrium 67335. Bariatric surgery status 02/08/2022 08:02 [facility] TYPE: Weight Management DIAGNOSES: 18470. Type 2 diabetes mellitus without complications 34334. Morbid (severe) obesity due to excess calories 63392. Type 2 diabetes mellitus without complications 22391. Body mass index [BMI] 70 or greater, adult 45028. Malignant neoplasm of endometrium 09/18/2021 15:52 [facility] TYPE: Medical Surgical COMPLAINT: - ACUTE RESPIRATORY FAILURE WITH HYPOXIA DIAGNOSES: - Neoplasm of unspecified behavior of other genitourinary organ - Cannabis use, unspecified, uncomplicated - Low back pain, unspecified - Morbid (severe) obesity due to excess calories - Type 2 diabetes mellitus without complications - Gastro-esophageal reflux disease without esophagitis - fur blower (current) use of oral hypoglycemic drugs - Gastro-esophageal reflux disease without esophagitis - Allergy status to other drugs, medicaments and biological substances - fur blower (current) use of oral hypoglycemic drugs - Obstructive sleep apnea (adult) (pediatric) - Other account manager relief (current) drug therapy - Obstructive sleep apnea (adult) (pediatric) - Pneumonia, unspecified organism - Other chronic pain - Body mass index [BMI] 70 or greater, adult - Contact with and (suspected) exposure to COVID-19 - Acute respiratory failure with hypoxia - FDC (current) use of aspirin - Neoplasm of unspecified behavior of other genitourinary organ - Other snf (current) drug therapy - Essential (primary) hypertension - Cannabis use, unspecified, uncomplicated - Essential (primary) hypertension - Allergy status to other drugs, medicaments and biological substances - Acute respiratory failure with hypoxia - Low back pain, unspecified - Moderate persistent asthma with (acute) exacerbation - Moderate persistent asthma with (acute) exacerbation - Allergy status to analgesic agent - FDC (current) use of aspirin - Contact with and (suspected) exposure to COVID-19 - Allergy status to analgesic agent - Other chronic pain - Morbid (severe) obesity due to excess calories - Type 2 diabetes mellitus without complications - Body mass index [BMI] 70 or greater, adult [email or web address]
[2022-04-17] MEDS ORDERED: LISINOPRIL20 MG PO (04:29)
[2022-04-17] MEDS ORDERED: URSODIOL300 MG PO (04:30)
[2022-04-17] MEDS ORDERED: ONDANSETRON ODT8 MG PO (06:15)
[2022-04-17] MEDS ORDERED: PERCOCET 5-3251 EACH PO (06:15)
[2022-04-17] MEDS ORDERED: FLOMAX0.4 MG PO (06:15)
== END 2022-04-17 07:14 | disposition home or self-care (01) ==
LOC: ED 04:14
DX: N13.2 Hydronephrosis with renal and ureteral calculous obstruction (principal); E11.9 Type 2 diabetes mellitus without complications; I10 Essential (primary) hypertension; J45.909 Unspecified asthma, uncomplicated; F17.210 Nicotine dependence, cigarettes, uncomplicated; Z88.8 Allergy status to other drugs, medicaments and biological substances; Z88.6 Allergy status to analgesic agent; Z79.899 Other long term (current) drug therapy
CPT/HCPCS: 36415; 74177; 80053; 81001; 83690; 83735; 84703; 85025; 96374; 96375; 96376; 99284-25; A9270; J1170; J1885; J2270; J2405; J2550; J7121; Q9967

== ENCOUNTER 2022-08-20 14:11 | Emergency (ER) | payer OTHER ==
[~2022-08-20] VITALS: Ht 165.1 cm; Wt 178.3 kg
[~2022-08-20 14:11] MED LIST changes: +FLOMAX0.4 MG PO; +ONDANSETRON ODT8 MG PO; +PERCOCET 5-3251 EACH PO; +URSODIOL300 MG PO
--- OUTSIDE RECORDS SUMMARY | 2022-08-20 14:12 | XMS ---
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 - Patient with suicidal and/or homicidal ideations eloped. - Patient eloped with IV in place. Details: PATIENT LWBS Elopement at [facility] 04/05/2021 20:17 - Other Details: PATIENT LWBS CRITERIA MET - [facility] - [facility] - 2 Visits in 30 Days CARE PROVIDERS -[place]- Dentist: Trapeze Performer [facility] PHONE: [phone] Christina Baez-Eloy Nurse Practitioner: Family Current PHONE: [phone] Luis has no Care Guidelines for this patient. Care History Medical/Surgical 02/13/2019 [facility] - NO PCP LETTER SENT TO PATIENT. EMylesD. VISIT COUNT (12 MO.) [address] [facility] TOTAL 8 NOTE: Visits indicate total known visits. ED/UCC VISIT TRACKING (12 MO.) 08/20/2022 14:11 [facility] TYPE: Emergency COMPLAINT: - RECTAL PAIN 08/17/2022 14:53 [facility] TYPE: Emergency COMPLAINT: - BLOOD IN STOOL 07/19/2022 12:22 [facility] TYPE: Emergency COMPLAINT: - L FLANK TO L ABD PAIN DIAGNOSES: - Allergy status to other drugs, medicaments and biological substances - Essential (primary) hypertension - Hydronephrosis with renal and ureteral calculous obstruction - Left lower quadrant pain - Nicotine dependence, unspecified, uncomplicated - Other petroleum terminal plant operator (current) drug therapy - Type 2 diabetes mellitus without complications - Unspecified asthma, uncomplicated 04/17/2022 04:15 [facility] TYPE: Emergency COMPLAINT: - ABD PAIN DIAGNOSES: - Allergy status to analgesic agent - Allergy status to other drugs, medicaments and biological substances - Essential (primary) hypertension - Hydronephrosis with renal and ureteral calculous obstruction - Nicotine dependence, cigarettes, uncomplicated - Other mcc (current) drug therapy - Right lower quadrant pain - Type 2 diabetes mellitus without complications - Unspecified asthma, uncomplicated 02/13/2022 10:38 [facility] TYPE: Emergency COMPLAINT: - LOWER ABD PAIN, VAGINAL BLEEDING DIAGNOSES: - Allergy status to analgesic agent - Allergy status to other drugs, medicaments and biological substances - Essential (primary) hypertension - Nicotine dependence, unspecified, uncomplicated - Other petroleum terminal plant operator (current) drug therapy - Pelvic and perineal pain - Right lower quadrant pain - Type 2 diabetes mellitus without complications - Unspecified asthma, uncomplicated 11/06/2021 09:04 [facility] TYPE: Emergency COMPLAINT: - UTI SYMPTOMS DIAGNOSES: - Allergy status to analgesic agent - Allergy status to other drugs, medicaments and biological substances - Dysuria - Essential (primary) hypertension - petroleum terminal plant operator (current) use of aspirin - MCC (current) use of oral hypoglycemic drugs - Nicotine dependence, unspecified, uncomplicated - Other mcc (current) drug therapy - Type 2 diabetes mellitus without complications - Unspecified asthma, uncomplicated - Urinary tract infection, site not specified 09/18/2021 11:31 [facility] TYPE: Emergency COMPLAINT: - SOB / CHEST PAIN 08/22/2021 09:08 [facility] TYPE: Emergency COMPLAINT: - VOMITING, FEVER, SOB DIAGNOSES: - Allergy status to analgesic agent - Allergy status to other drugs, medicaments and biological substances - Bariatric surgery status - Body mass index [BMI] 70 or greater, adult - Contact with and (suspected) exposure to COVID-19 - Diarrhea, unspecified - Essential (primary) hypertension - Morbid (severe) obesity due to excess calories - Nausea with vomiting, unspecified - Nicotine dependence, unspecified, uncomplicated - Type 2 diabetes mellitus without complications - Unspecified asthma, uncomplicated INPATIENT VISIT TRACKING (12 MO.) 03/15/2022 05:29 [facility] TYPE: Weight Management DIAGNOSES: 46334. Dysphagia, unspecified 93371. Morbid (severe) obesity due to excess calories . Bariatric surgery status . Malignant neoplasm of endometrium 02/08/2022 08:02 [facility] TYPE: Weight Management DIAGNOSES: 03153. Type 2 diabetes mellitus without complications . Body mass index [BMI] 70 or greater, adult 07491. Malignant neoplasm of endometrium 60746. Morbid (severe) obesity due to excess calories 58296. Type 2 diabetes mellitus without complications 09/18/2021 15:[address] [facility] TYPE: Medical Surgical COMPLAINT: - ACUTE RESPIRATORY FAILURE WITH HYPOXIA DIAGNOSES: - Acute respiratory failure with hypoxia - Acute respiratory failure with hypoxia - Allergy status to analgesic agent - Allergy status to analgesic agent - Allergy status to other drugs, medicaments and biological substances - Allergy status to other drugs, medicaments and biological substances - Body mass index [BMI] 70 or greater, adult - Body mass index [BMI] 70 or greater, adult - Cannabis use, unspecified, uncomplicated - Cannabis use, unspecified, uncomplicated - Contact with and (suspected) exposure to COVID-19 - Contact with and (suspected) exposure to COVID-19 - Essential (primary) hypertension - Essential (primary) hypertension - Gastro-esophageal reflux disease without esophagitis - Gastro-esophageal reflux disease without esophagitis - MCC (current) use of aspirin - MCC (current) use of aspirin - petroleum terminal plant operator (current) use of oral hypoglycemic drugs - petroleum terminal plant operator (current) use of oral hypoglycemic drugs - Low back pain, unspecified - Low back pain, unspecified - Moderate persistent asthma with (acute) exacerbation - Moderate persistent asthma with (acute) exacerbation - Morbid (severe) obesity due to excess calories - Morbid (severe) obesity due to excess calories - Neoplasm of unspecified behavior of other genitourinary organ - Neoplasm of unspecified behavior of other genitourinary organ - Obstructive sleep apnea (adult) (pediatric) - Obstructive sleep apnea (adult) (pediatric) - Other chronic pain - Other chronic pain - Other petroleum terminal plant operator (current) drug therapy - Other mcc (current) drug therapy - Pneumonia, unspecified organism - Type 2 diabetes mellitus without complications - Type 2 diabetes mellitus without complications [email or web address]
[2022-08-20] MEDS ORDERED: ANUCORT-HC25 MG PR (15:33)
[2022-08-20 16:16] VITALS: BP 153/91
[2022-08-23] MEDS ORDERED: PRILOSEC OTC20 MG PO (15:07)
== END 2022-08-20 16:16 | disposition home or self-care (01) ==
LOC: ED 14:11
DX: K60.2 Anal fissure, unspecified (principal); E11.9 Type 2 diabetes mellitus without complications; I10 Essential (primary) hypertension; J45.909 Unspecified asthma, uncomplicated; F17.200 Nicotine dependence, unspecified, uncomplicated; Z88.8 Allergy status to other drugs, medicaments and biological substances; Z79.899 Other long term (current) drug therapy
CPT/HCPCS: 96372; 99283; J1885

== ENCOUNTER 2023-02-26 13:21 | Emergency (ER) | payer OTHER ==
[~2023-02-26] VITALS: Ht 165.1 cm; Wt 175.1 kg
[~2023-02-26 13:21] MED LIST changes: +ANUCORT-HC25 MG PR; +PRILOSEC OTC20 MG PO
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
[2023-02-26] MEDS ORDERED: CYCLOBENZAPRINE10 MG PO (18:43)
[2023-02-26 18:51] VITALS: BP 135/82
== END 2023-02-26 18:52 | disposition home or self-care (01) ==
LOC: ED 13:21
DX: S16.1XXA Strain of muscle, fascia and tendon at neck level, initial encounter (principal); S29.012A Strain of muscle and tendon of back wall of thorax, initial encounter; S39.012A Strain of muscle, fascia and tendon of lower back, initial encounter; V43.52XA Car driver injured in collision with other type car in traffic accident, initial encounter; E11.9 Type 2 diabetes mellitus without complications; I10 Essential (primary) hypertension; J45.909 Unspecified asthma, uncomplicated; F17.200 Nicotine dependence, unspecified, uncomplicated; Z88.6 Allergy status to analgesic agent; Z88.8 Allergy status to other drugs, medicaments and biological substances; Z79.899 Other long term (current) drug therapy
CPT/HCPCS: 70450; 72125; 72128; 72131; 84703; A9270

== ENCOUNTER 2023-12-31 04:49 | Emergency (ER) | payer OTHER ==
[~2023-12-31] VITALS: Ht 165.1 cm; Wt 182.0 kg
[~2023-12-31 04:49] MED LIST changes: +HYDROCODON-ACE1 EAC8 PO; +LISINOPRIL10 MG PO; +PROMETHAZINE12.5 M1 PO; +TRANEXAMIC ACI650 MG PO; +TRULICITY1.5 MG/0.5 SUB-Q; +VITAMIN D21250 MCG PO
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
[2023-12-31] MEDS ORDERED: HYDROmorphone HCL 1 MG/ML SYR IV PRN (05:45)
[2023-12-31] MEDS ORDERED: ondansetron HCL 4 MG/2 ML VIAL IV ONE (05:45)
[2023-12-31 05:46] LABS: BASOPHILS 0.9 % (0-2); EOSINOPHILS 4.1 % (0-6); HEMATOCRIT 43.4 % (35.0-50.0); HEMOGLOBIN 14.7 g/dL (12.0-18.0); LYMPHOCYTES 27.8 % (24-44); MCH 29.7 (27-36); MCHC 33.8 g/dl (30-36); MCV 88.1 fl (81-99); MONOCYTES 6.8 % (0-12); NEUTROPHILS 60.4 % (39-80); PLATELET COUNT 241 K/uL (140-440); RBC 4.93 M/ul (4.3-5.7); RDW 14.1 (10.5-15.0)
[2023-12-31 06:03] LABS: ALBUMIN 3.4 g/dL (3.4-5.0); ALBUMIN/GLOBULIN RATIO 0.85 (1.1-2.4); ANION GAP 12.3 (7-21); BILIRUBIN, TOTAL 0.4 ng/dL (0.2-1.0); BUN/CREATININE RATIO 18.18 (6.0-28.6); CALCIUM 8.9 mg/dL (8.5-10.1); CREATININE, SERUM 0.77 mg/dL (0.55-1.02); POTASSIUM 4.3 mmol/L (3.5-5.1); PROTEIN, TOTAL 7.4 g/dL (6.4-8.2)
[2023-12-31] MEDS ORDERED: HYDROCODON-ACE1 EA10 PO (06:35)
[2023-12-31] MEDS ORDERED: HYDROCODONE BIT/ACETAMINOPHEN 5/325 MG 1 TAB HOME.PACK PO PRN (06:45)
[2023-12-31 07:05] VITALS: BP 131/84
== END 2023-12-31 07:05 | disposition home or self-care (01) ==
LOC: ED 04:49
PROVIDERS: Emergency Medicine
DX: R10.2 Pelvic and perineal pain (principal); E11.9 Type 2 diabetes mellitus without complications; I10 Essential (primary) hypertension; J45.909 Unspecified asthma, uncomplicated; F17.200 Nicotine dependence, unspecified, uncomplicated; Z88.8 Allergy status to other drugs, medicaments and biological substances; Z88.6 Allergy status to analgesic agent; Z79.899 Other long term (current) drug therapy
CPT/HCPCS: 36415; 80053; 83690; 84703; 85025; 96374; 96375; 99284-25; A9270; J1170; J2405

== ENCOUNTER 2024-02-28 13:32 | Emergency (ER) | payer OTHER ==
[~2024-02-28] VITALS: Ht 165.1 cm; Wt 188.0 kg
--- OUTSIDE RECORDS SUMMARY | ~2024-02-28 | XMS | Continuity of Care Document ---
Demographics + + + | Address | [address] | | | [place] [address] | + + + | Preferred Language | Unknown | + + + | Marital Status | Unknown | + + + | Restoration Affiliation | Unknown | + + + | Race | White | + + + | Ethnic Group | or | + + + Author + + + | Author | [facility] | + + + | Organization | [facility] | + + + | Address | [address] | | | [place] [address] | + + + | Phone | | + + + Care Team Providers + + + + | Care Biztalk Consultant Name | Role | Phone | + [...]
--- OUTSIDE RECORDS SUMMARY | 2024-02-28 13:39 | XMS ---
PreManage Notification: ANDREY MARTINEZ Security Protection Manager Events No recent Security Events currently on file CRITERIA MET - Group Notification CARE PROVIDERS -[facility] Dentist: Investment Strategist [facility] PHONE: [phone] -[place]- Dentist: Investment Strategist [facility] Dental [facility] PHONE: [phone] -Brien- Dentist: Investment Strategist [facility] Dental [facility] PHONE: [phone] [facility] PHONE: [phone] Luis has no Care Guidelines for this patient. Care History Medical/Surgical 02/13/2019 [facility] \R\- NO PCP LETTER SENT TO PATIENT. Tigist [facility] MO[facility] NOTE: Visits indicate total known visits. ED/UCC VISIT TRACKING (12 MO.) 02/28/2024 13:[facility] COMPLAINT: - SHORTNESS OF BREATH/HEART PALP 12/31/2023 04:49 [facility] [place] TYPE: Emergency COMPLAINT: - GROIN PAIN DIAGNOSES: - Allergy status to analgesic agent - Allergy status to other drugs, medicaments and biological substances - Essential (primary) hypertension - Nicotine dependence, unspecified, uncomplicated - Other mcc (current) drug therapy - Pelvic and perineal pain - Type 2 diabetes mellitus without complications - Unspecified asthma, uncomplicated 07/17/2023 10:48 [facility] [place] TYPE: Emergency COMPLAINT: - PELVIC PAIN DIAGNOSES: - Allergy status to analgesic agent - Allergy status to other drugs, medicaments and biological substances - Essential (primary) hypertension - Nicotine dependence, unspecified, uncomplicated - Other mcc (current) drug therapy - Pelvic and perineal pain - Type 2 diabetes mellitus without complications 07/04/2023 09:17 [facility] [place] TYPE: Emergency COMPLAINT: - PELVIC PAIN INPATIENT VISIT TRACKING (12 MO.) No inpatient visits to display in this time frame [email or web address]
[2024-02-28 14:12] LABS: BASOPHILS 0.3 % (0-2); EOSINOPHILS 4.7 % (0-6); HEMATOCRIT 40.7 % (35.0-50.0); HEMOGLOBIN 13.6 g/dL (12.0-18.0); LYMPHOCYTES 23.2 % (24-44); MCH 29.2 (27-36); MCHC 33.4 g/dl (30-36); MCV 87.6 fl (81-99); MONOCYTES 5.9 % (0-12); NEUTROPHILS 65.9 % (39-80); PLATELET COUNT 238 K/uL (140-440); RBC 4.64 M/ul (4.3-5.7); RDW 13.2 (10.5-15.0)
[2024-02-28 14:43] LABS: ALBUMIN 3.1 g/dL (3.4-5.0); ALBUMIN/GLOBULIN RATIO 0.89 (1.1-2.4); ALKALINE PHOSPHATASE 82 U/L (46-116); ALT (SGPT) 11 U/L (14-59); ANION GAP 9.8 (7-21); AST (SGOT) 11 U/L (15-37); BILIRUBIN, TOTAL 0.3 ng/dL (0.2-1.0); BUN/CREATININE RATIO 14.63 (6.0-28.6); CALCIUM 8.4 mg/dL (8.5-10.1); CARBON DIOXIDE 29 mmol/L (21-32); CHLORIDE 107 mmol/L (98-107); CREATININE, SERUM 0.82 mg/dL (0.55-1.02); GLOMERULAR FILTRATION RATE,EST 96 mL/min (>60); MAGNESIUM 1.8 mg/dL (1.8-2.4); POTASSIUM 3.8 mmol/L (3.5-5.1); PROTEIN, TOTAL 6.6 g/dL (6.4-8.2); UREA NITROGEN 12 mg/dL (7-18)
[2024-02-28 15:12] VITALS: BP 131/83
--- NOTE | 2024-02-28 19:37 | EKG ---
[facility] [address] [place] [address] Signed Normal sinus rhythm Normal ECG When compared with ECG of 03-MAY-2023 16:11, QT has lengthened Confirmed by Kimberly Curry MD ([id number]) on 02/28/2024 7:37:29 PM Electronically Signed By: KIMBERLY CURRY MD 02/28/241936 PATIENT NAME: MARTINEZANDREY Electrocardiogram DATE OF : 88 PHYSICIAN: KIMBERLY CURRY MD REPORT #: [id number] REPORT IS CONFIDENTIAL AND NOT TO BE RELEASED WITHOUT AUTHORIZATION
== END 2024-02-28 15:12 | disposition home or self-care (01) ==
LOC: ED 13:32
PROVIDERS: Emergency Medicine
DX: R06.02 Shortness of breath (principal); E11.9 Type 2 diabetes mellitus without complications; I10 Essential (primary) hypertension; F17.200 Nicotine dependence, unspecified, uncomplicated; Z79.899 Other long term (current) drug therapy; Z88.6 Allergy status to analgesic agent; Z88.8 Allergy status to other drugs, medicaments and biological substances
CPT/HCPCS: 36415; 71045; 80053; 83735; 84443; 84484; 85025; 93005; 93010; 99285-25

== ENCOUNTER 2024-05-11 13:30 | Inpatient (IN) | payer OTHER ==
[~2024-05-11] VITALS: Ht 165.1 cm; Wt 196.0 kg
--- OUTSIDE RECORDS SUMMARY | ~2024-05-11 | XMS | Continuity of Care Document ---
Demographics + + + | Address | [address] | | | [place] [address] | + + + | Preferred Language | Unknown | + + + | Marital Status | Unknown | + + + | Caodaism Affiliation | Unknown | + + + | Race | White | + + + | Ethnic Group | or | + + + Author + + + | Author | [facility] | + + + | Organization | [facility] | + + + | Address | [address] | | | [place] [address] | + + + | Phone | | + + + Care Team Providers + + + + | Care Paper Products Machine Operator Name | Role | Phone | + + + + Unavailable | Unavailable | + + + + Allergies No information. Encounters No information. Functional Status No information. Immunizations No information. Medications No information. 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 Results/Labs No information. Social History +--------+ + + | date | description | facility | +--------+ + + Vital Signs No information."
--- OUTSIDE RECORDS SUMMARY | ~2024-05-11 | XMS | Continuity of Care Document ---
Demographics + + + | Address | [address] | | | [place] [address] | + + + | Preferred Language | Unknown | + + + | Marital Status | Unknown | + + + | Alevism Affiliation | Unknown | + + + | Race | White | + + + | Ethnic Group | or | + + + Author + + + | Author | [facility] | + + + | Organization | [facility] | + + + | Address | [address] | | | [place] [address] | + + + | Phone | | + + + Care Team Providers + + + + | Care Plastic Top Assembler Name | Role | Phone | + [...] | [facility] | | | disease of [place] coronary | | | | artery without angina | | | | pectoris | | + + + + | 2024-04-12 02:14:49 | Atherosclerotic heart | [facility] | | | disease of [place] coronary | | | | artery without [...]
--- OUTSIDE RECORDS SUMMARY | 2024-05-11 13:37 | XMS ---
PreManage Notification: ANDREY MARTINEZ Security Creative Producer Events No recent Security Events currently on file CRITERIA MET - Group Notification CARE PROVIDERS -[facility] Dentist: Electronic Drafter [facility] PHONE: [phone] -[place]- Dentist: Electronic Drafter [facility] PHONE: [phone] -Brien- Dentist: Electronic Drafter [facility] Dental [facility] PHONE: [phone] [facility]/Sebastian: [facility] PHONE: [phone] Izabela Betancourt Physician Assistant Alis VORA PHONE: [phone] Luis has no Care Guidelines for this patient. Care History Medical/Surgical 02/13/2019 [facility] \R\- NO PCP LETTER SENT TO PATIENT. Tigist VISIT COUNT (12 MO.) 5 [facility]. TOTAL 5 NOTE: Visits indicate total known visits. ED/UCC VISIT TRACKING (12 MO.) 05/11/2024 13:31 [facility] [place] TYPE: Emergency COMPLAINT: - POST OP PROBLEM 02/28/2024 13:32 [facility] [place] TYPE: Emergency COMPLAINT: - SHORTNESS OF BREATH/HEART PALP DIAGNOSES: - Allergy status to analgesic agent - Allergy status to other drugs, medicaments and biological substances - Essential (primary) hypertension - Nicotine dependence, unspecified, uncomplicated - Other salvage determiner (current) drug therapy - Palpitations - Shortness of breath - Type 2 diabetes mellitus without complications 12/31/2023 04:49 [facility] [place] TYPE: Emergency COMPLAINT: - GROIN PAIN DIAGNOSES: - Allergy status to analgesic agent - Allergy status to other drugs, medicaments and biological substances - Essential (primary) hypertension - Nicotine dependence, unspecified, uncomplicated - Other shelter (current) drug therapy - Pelvic and perineal pain - Type 2 diabetes mellitus without complications - Unspecified asthma, uncomplicated 07/17/2023 10:48 [facility] [place] TYPE: Emergency COMPLAINT: - PELVIC PAIN DIAGNOSES: - Allergy status to analgesic agent - Allergy status to other drugs, medicaments and biological substances - Essential (primary) hypertension - Nicotine dependence, unspecified, uncomplicated - Other shelter (current) drug therapy - Pelvic and perineal pain - Type 2 diabetes mellitus without complications 07/04/2023 09:17 [facility] [place] TYPE: Emergency COMPLAINT: - PELVIC PAIN INPATIENT VISIT TRACKING (12 MO.) No inpatient visits to display in this time frame [id number]
[2024-05-11] MEDS ORDERED: METOPROLOL TART50 MG PO (13:55)
[2024-05-11] MEDS ORDERED: ATORVASTATIN CA20 MG PO (13:55)
[2024-05-11] MEDS ORDERED: LISINOPRIL10 MG PO (13:55)
[2024-05-11] MEDS ORDERED: ondansetron HCL 4 MG/2 ML VIAL IV ONE (14:30)
[2024-05-11] MEDS ORDERED: HYDROmorphone HCL 1 MG/ML SYR IV PRN (14:30)
[2024-05-11] MEDS ORDERED: KETOROLAC TROMETHAMINE 30 MG/ML VIAL IV ONE (14:30)
[2024-05-11 14:43] LABS: BILIRUBIN, URINE NEGATIVE (negative); BLOOD/HGB, URINE SMALL (Negative); KETONE, URINE TRACE (Negative); LEUK ESTERASE, URINE NEGATIVE (negative); NITRITE, URINE NEGATIVE (negative); PH, URINE 7.5 (5-7)
[2024-05-11 14:55] LABS: EPITHELIAL CELLS, URINE SQUAMOUS 3+ /lpf (0-1+)
[2024-05-11 15:01] LABS: ALBUMIN 3.3 g/dL (3.4-5.0); ALBUMIN/GLOBULIN RATIO 0.79 (1.1-2.4); ANION GAP 8.5 (7-21); BILIRUBIN, TOTAL 0.6 mg/dL (0.2-1.0); CALCIUM 8.9 mg/dL (8.5-10.1); CREATININE, SERUM 1.23 mg/dL (0.55-1.02); POTASSIUM 4.5 mmol/L (3.5-5.1); PROTEIN, TOTAL 7.5 g/dL (6.4-8.2)
[2024-05-11 15:02] LABS: BASOPHILS 0.3 % (0-2); EOSINOPHILS 0.6 % (0-6); HEMATOCRIT 43.4 % (35.0-50.0); HEMOGLOBIN 14.5 g/dL (12.0-18.0); LYMPHOCYTES 6.1 % (24-44); MCH 28.6 (27-36); MCHC 33.4 g/dl (30-36); MCV 85.6 fl (81-99); MONOCYTES 5.7 % (0-12); NEUTROPHILS 87.3 % (39-80); PLATELET COUNT 279 K/uL (140-440); RBC 5.06 M/ul (4.3-5.7); RDW 13.8 (10.5-15.0)
[2024-05-11 15:07] LABS: BACTERIA, URINE NONE SEEN /hpf (negative); CASTS, URINE NONE SEEN \\lpf; COLLECTION TYPE, URINE CLEAN CATCH; CRYSTALS, URINE NONE SEEN (0-1+); REFLEX CULTURE, URINE No (No)
[2024-05-11] MEDS ORDERED: CEFEPIME HCL/D5W 2 GM/100 ML PIGGYBACK IV ONE (16:45)
[2024-05-11] MEDS ORDERED: metroNIDAZOLE/SODIUM CHLORIDE 500 MG/100 ML PIGGYBACK IV ONE (16:45)
[2024-05-11] MEDS ORDERED: FAMOTIDINE 20 MG TAB PO SCH (17:25)
[2024-05-11] MEDS ORDERED: ACETAMINOPHEN 325 MG TAB PO PRN (17:30)
[2024-05-11] MEDS ORDERED: ondansetron HCL 4 MG/2 ML VIAL IV PRN (17:30)
[2024-05-11] MEDS ORDERED: OXYCODONE HCL 5 MG TAB PO PRN (17:30)
[2024-05-11 18:24] VITALS: BP 149/73
[2024-05-11 21:00] VITALS: BP 149/50
[2024-05-11 22:08] VITALS: BP 149/50
[2024-05-12] VITALS (9 sets, daily range): BP systolic 108–144; BP diastolic 55–74
[2024-05-12] MEDS ORDERED: CEFEPIME HCL/D5W 2 GM/100 ML PIGGYBACK IV SCH (01:00)
[2024-05-12 05:40] LABS: BASOPHILS 0.3 % (0-2); EOSINOPHILS 0.7 % (0-6); HEMATOCRIT 38.8 % (35.0-50.0); HEMOGLOBIN 12.9 g/dL (12.0-18.0); LYMPHOCYTES 12.8 % (24-44); MCH 28.1 (27-36); MCHC 33.2 g/dl (30-36); MCV 84.5 fl (81-99); MONOCYTES 8.5 % (0-12); NEUTROPHILS 77.7 % (39-80); PLATELET COUNT 230 K/uL (140-440); RDW 13.8 (10.5-15.0)
[2024-05-12 05:56] LABS: ALBUMIN 2.9 g/dL (3.4-5.0); ALBUMIN/GLOBULIN RATIO 0.74 (1.1-2.4); BILIRUBIN, TOTAL 0.9 mg/dL (0.2-1.0); BUN/CREATININE RATIO 21.12 (6.0-28.6); CALCIUM 8.2 mg/dL (8.5-10.1); CREATININE, SERUM 0.71 mg/dL (0.55-1.02); PROTEIN, TOTAL 6.8 g/dL (6.4-8.2)
[2024-05-12] MEDS ORDERED: METOPROLOL TARTRATE 50 MG TAB PO SCH (09:00)
[2024-05-12] MEDS ORDERED: ATORVASTATIN 20 MG TAB PO SCH (09:00)
[2024-05-12] MEDS ORDERED: lisinopriL 10 MG TAB PO SCH (09:00)
[2024-05-12] MEDS ORDERED: metroNIDAZOLE/SODIUM CHLORIDE 500 MG/100 ML PIGGYBACK IV SCH ×2 (12:00)
[2024-05-12] MEDS ORDERED: TRULICITY0.75 MG/0. SUB-Q (16:36)
[2024-05-12] MEDS ORDERED: CITRACAL-VIT D1 EACH PO (17:11)
[2024-05-12] MEDS ORDERED: BARIATRIC MV-I1 EACH PO (17:11)
[2024-05-13 05:31] VITALS: BP 122/65
[2024-05-13 05:41] VITALS: BP 122/65
[2024-05-13 05:42] LABS: BASOPHILS 0.8 % (0-2); EOSINOPHILS 1.8 % (0-6); HEMATOCRIT 37.8 % (35.0-50.0); HEMOGLOBIN 12.4 g/dL (12.0-18.0); LYMPHOCYTES 18.5 % (24-44); MCH 28.2 (27-36); MCHC 32.9 g/dl (30-36); MCV 85.6 fl (81-99); MONOCYTES 7.7 % (0-12); NEUTROPHILS 71.2 % (39-80); PLATELET COUNT 223 K/uL (140-440); RBC 4.41 M/ul (4.3-5.7); RDW 14.1 (10.5-15.0)
[2024-05-13] MEDS ORDERED: AUGMENTIN 500-1 EACH PO (09:03)
[2024-05-13 09:57] VITALS: BP 99/57
--- NOTE | 2024-05-14 12:34 | HP ---
[facility] [address], [place] [address] Signed ADMISSION DATE: 05/11/2024 CHIEF COMPLAINT: Postoperative pain. HISTORY OF PRESENT ILLNESS: Ms. Martinez is a 34-year-old G0 female, well known to me. Briefly, the patient with menarche at age 12. She is diagnosed with endometrial carcinoma in 2019 that was managed with Mirena IUD due to her morbid obesity making her a poor candidate for hysterectomy per [facility] Welder Assembler Oncology. She previously undergone bariatric sleeve and then further underwent duodenal switch, but continues to be morbidly obese. The patient with progression noted on serial endometrial biopsies. Eventually, the patient was referred to Dr. Cruz at [facility] in [place], [place], where she underwent total laparoscopic hysterectomy with unilateral salpingo-oophorectomy as she had the previous tube and ovary removed. The patient reports that lymph nodes were not performed due to her comorbidities. 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 Surgery is April 29 and the patient stayed overnight and has had an uneventful recovery until yesterday. Last night, the patient reports that she wishes to be more mobile. She ambulated and then felt overheated and "prickly." She had some mild nausea and was dizzy with sweating. She reports pulling pain behind her belly button. This morning, her pain was worse. She feels some warmth that is different than postoperative hot flashes that she has had. The patient denies chills, rigors, or diarrhea. She has had no vaginal bleeding or abnormal discharge. She reports some stinging with voiding and she reports normal bowel movements. She reports her incisions are well healed. She reports no interval intercourse or other concerns at this time. REVIEW OF SYSTEMS: A complete review of systems was performed and negative except per HPI. PAST MEDICAL HISTORY: Significant for 1. Morbid obesity. 2. Type 2 diabetes, controlled on Trulicity and diet. 3. Hypertension. 4. Palpitations. PAST SURGICAL HISTORY: 1. Robotic TLH with unilateral salpingo-oophorectomy with Dr. Cruz as above. 2. Left salpingo-oophorectomy. 3. Bariatric sleeve/duodenal switch. Electronically Signed By: HUGO REY DO (JD) 05/14/24 1234 PATIENT NAME: ANDREY MARTINEZ HISTORY AND PHYSICAL DATE OF : 88 REPORT #: [id number] PHYSICIAN: HUGO REY) PCP: SRINIVASAN QUINTERO PAC REPORT IS CONFIDENTIAL AND NOT TO BE RELEASED WITHOUT AUTHORIZATION [facility] [address], [place] [address] Signed 4. Hysteroscopy and D and C. ALLERGIES: 1. Ibuprofen, contraindication due to her bariatric surgery. 2. Hydrochlorothiazide causes rash. 3. BuSpar causes vertigo. SOCIAL HISTORY: The patient uses marijuana occasionally. She denies alcohol or tobacco use. FAMILY HISTORY: Noncontributory. PHYSICAL EXAMINATION: VITAL SIGNS: Temp 99.0, pulse 93, respiratory rate 19, blood pressure 149/73, 119/77, pulse ox 96%. Weight 432 pounds. BMI 72 GENERAL: The patient is obese female, sitting in hospital[facility], sitting up, smiling, and laughing, in no apparent distress. She is here with her , who also is well known to me. HEENT: Normocephalic and atraumatic. NECK: Supple. Trachea midline. No masses or thyromegaly. HEART: Regular rate and rhythm. LUNGS: Clear to auscultation bilaterally. ABDOMEN: Obese, soft, nondistended, nontender except very mild tenderness with deep palpation, particularly in the left lower quadrant. No rebound. Incisions are well healing with no signs of infection. EXTREMITIES: No edema. PELVIC: Deferred today. LABORATORY DATA: WBCs 18.7, hemoglobin 14.5, platelets 297. Sodium 139, chloride 103, CO2 of 32, BUN 16, creatinine 1.23. Glucose 100. AST 14, ALT 40. Urine was negative. IMAGING: CT of the abdomen and pelvis was performed. Significant for postsurgical change and some fat stranding in the pelvis. There is a small hyperdense material with rounded contour of the expected location of the urinary bladder. Radiology impression, extensive stranding within the operative bed that is "felt to be more than would be expected in this time course and raises concern for possible infection." There is, however, no clearly drainable fluid collection or soft tissue gas. Incidentally, there is a stable right adrenal Electronically Signed By: HUGO SWAIN) DO KRISSY 05/14/24 1234 PATIENT NAME: ANDREY MARTINEZ HISTORY AND PHYSICAL DATE OF : 88 REPORT #: [id number] PHYSICIAN: HUGO REY DO (JD) PCP: SRINIVASAN QUINTERO PAC REPORT IS CONFIDENTIAL AND NOT TO BE RELEASED WITHOUT AUTHORIZATION [address] [address] Signed adenoma and prior gastric bypass changes without complication. ASSESSMENT: Postoperative infection. PLAN: The patient with possible postoperative infection as indicated by elevated white count, discomfort, and fat stranding beyond radiologist expects. This patient is high risk due to her comorbid indications, we will admit the patient for IV antibiotics. Cefepime 2 g IV q.8 hours and metronidazole 500 mg q.6 hours. We will repeat WBCs and CMP in the morning. We will likely call the patient's biztalk software developer oncologist, Dr. Cruz at [facility] tomorrow and review the case with him for any additional recommendations, follow up her management per his direction. The patient appears very stable at this time. We will continue her home medications and her home CPAP machine due to history of sleep apnea. All questions were answered. Anticipated course was reviewed with the patient and her . The patient understands and agrees with this plan of care. DO ILANA Berman/MODL /[id number] Copies: ~ Electronically Signed By: HUGO REY DO (JD) 05/14/24 1234 PATIENT NAME: ANDREY MARTINEZ HISTORY AND PHYSICAL DATE OF : 88 REPORT #: [id number] PHYSICIAN: HUGO REY (LOUISE) PCP: SRINIVASAN QUINTERO PAC REPORT IS CONFIDENTIAL AND NOT TO BE RELEASED WITHOUT AUTHORIZATION
== END 2024-05-13 10:20 | disposition home or self-care (01) | DRG 863 ==
LOC: ED 13:30 → MS 17:28
PROVIDERS: Emergency Medicine; ADMIT Obstetrics & Gynecology; ATTEND Obstetrics & Gynecology
DX: T81.42XA Infection following a procedure, deep incisional surgical site, initial encounter (principal); Z68.45 Body mass index [BMI] 70 or greater, adult; N39.0 Urinary tract infection, site not specified; F17.210 Nicotine dependence, cigarettes, uncomplicated; Z90.710 Acquired absence of both cervix and uterus; I10 Essential (primary) hypertension; Z90.722 Acquired absence of ovaries, bilateral; Z90.79 Acquired absence of other genital organ(s); E66.01 Morbid (severe) obesity due to excess calories; J45.909 Unspecified asthma, uncomplicated; Z87.442 Personal history of urinary calculi; Z88.8 Allergy status to other drugs, medicaments and biological substances; Z85.42 Personal history of malignant neoplasm of other parts of uterus; Z98.84 Bariatric surgery status; Z98.890 Other specified postprocedural states
CPT/HCPCS: 36415; 74177; 80053; 81001; 84703; 85025; A9270; J0692; J1171; J1885; J2405; Q9967